=== PATIENT | female | born 1950 | race Caucasian/White ===

== ENCOUNTER → 2021-08-02 | Outpatient (CLI) | payer MEDICARE, OTHER ==
[2021-08-04 13:10] LABS: HPV 16 Negative (Negative); HPV 18 Negative (Negative); HPV OTHER HR TYPES Negative (Negative)
== END | disposition home or self-care (01) ==
LOC: LAB SHORT 13:59
PROVIDERS: Family Medicine
DX: Z01.419 Encounter for gynecological examination (general) (routine) without abnormal findings (principal); K21.9 Gastro-esophageal reflux disease without esophagitis; R13.10 Dysphagia, unspecified; Z85.41 Personal history of malignant neoplasm of cervix uteri
CPT/HCPCS: 87624; G0123

== ENCOUNTER 2021-08-16 09:15 | Day surgery (SDC) | payer MEDICARE, OTHER ==
[~2021-08-16] VITALS: Ht 165.1 cm; Wt 81.7 kg
[~2021-08-16 09:15] MED LIST: EUTHYROX75 MCG PO; OMEP20ER PO; PRAM.5 PO; TRAZ100 PO; VENL150ER PO
--- NOTE | 2021-08-16 11:07 | NUR ---
08/16/21 1107 Alissa To History, Chart, Medications and Allergies reviewed before start of procedure. Patient confirms NPO status and agrees with scheduled surgery. 3-LEAD EKG REVIEWED WITH PHYSICIAN PRIOR TO START OF PROCEDURE. MONITOR INTACT WITH CONTINUOUS PULSE OXIMETRY AND INTERMITTENT BP. PATIENT DETERMINED TO BE ASA APPROPRIATE FOR PROPOFOL SEDATION PRIOR TO START OF PROCEDURE BY . Bite Block Placed & REMOVED AT END OF CASE.
--- NOTE | 2021-08-16 12:15 | NUR ---
Discharge instructions reviewed with patient. Patient verbalizes understanding. Copy given to patient to take home. Discharged via wheelchair to private car for ride home.
== END 2021-08-16 12:16 | disposition home or self-care (01) ==
LOC: ORSCMMR 09:15 → ORD 10:30 → ORSCMMR 12:16
DX: K21.9 Gastro-esophageal reflux disease without esophagitis (principal); R13.10 Dysphagia, unspecified; E03.9 Hypothyroidism, unspecified; F41.8 Other specified anxiety disorders; G25.81 Restless legs syndrome; E66.9 Obesity, unspecified; Z98.84 Bariatric surgery status; Z68.30 Body mass index [BMI] 30.0-30.9, adult; Z79.899 Other long term (current) drug therapy
CPT/HCPCS: 88305; 88342; A9270; C1726; J2704; J7120

== ENCOUNTER → 2023-04-20 | Outpatient (CLI) | payer MEDICARE, OTHER | LOC: LAB SHORT 17:42 → LAB 17:42 | DX: N39.0 Urinary tract infection, site not specified (principal) | CPT/HCPCS: 87077; 87086; 87186 ==